=== PATIENT | female | born 1990 | race Two or more races ===

== ENCOUNTER 2016-12-23 00:50 | Emergency (ER) | payer SELFPAY ==
[~2016-12-23] VITALS: Ht 165.1 cm; Wt 59.0 kg
[2016-12-23] MEDS ORDERED: KETOROLAC TROMETHAMINE INJ 30 MG/ML VIAL ONE (01:03)
--- NOTE | 2016-12-23 01:10 | NUR ---
26 YO FEMALE BB FAMILY. PT IS ALERT X 3, RUQ ABD PAIN RADIATES TO RT UPPER BACK X1HR, NO N/V/D. PT AMBULATED TO ER BED, SKIN WARM AND DRY, RR EVEN AND UNLABORED. PT GOWNED, PLACED ON [employer]. AWAITING ORDERS FROM PROVIDER
[2016-12-23] MEDS ORDERED: ONDANSETRON HCL/PF 4 MG/2 ML VIAL ONE (01:19)
--- NOTE | 2016-12-23 01:20 | NUR ---
20G RIGHT AC IV STARTED, BLOOD SAMPLE OBTAINED AND SENT TO LAB. MEDICATED PT ORDERED
[2016-12-23] MEDS ORDERED: IV NS 0.9% 250 ML IV ONE (01:21)
[2016-12-23] MEDS ORDERED: IOHEXOL-300 100 ML VIAL IV ONE (01:21)
[2016-12-23 01:26] LABS: CALCIUM, SERUM 8.8 mg/dL (8.5-10.1); CREATININE 0.7 mg/dL (0.6-1.3); POTASSIUM 3.2 mmol/L (3.5-5.1)
--- NOTE | 2016-12-23 01:26 | NUR ---
PT HAD AN EPISODE OF EMISIS. NOTIFIED. ADMIN 4 MG ZOFRAN IVP
[2016-12-23] MEDS ORDERED: KETOROLAC TROMETHAMINE INJ 30 MG/ML VIAL IV ONE (01:30)
[2016-12-23] MEDS ORDERED: ONDANSETRON HCL/PF - ER 4 MG/2 ML VIAL IV ONE (01:30)
[2016-12-23 01:33] LABS: ALBUMIN 3.8 g/dL (3.4-5.0); BILIRUBIN,DIRECT 0.1 mg/dL (0.0-0.2); BILIRUBIN,TOTAL 0.4 mg/dL (0.2-1.0); HEMATOCRIT 28 % (33-45); MEAN CORPUSCULAR HEMOGLOBIN 19 PG (26.0-33.0); MEAN CORPUSCULAR HGB CONC 29 g/dl (31.0-36.0); MEAN CORPUSCULAR VOLUME 64 fL (82-100); RDW COEFFICIENT OF VARIATION 21.1 (11.5-15.0); RED BLOOD CELL COUNT(AUTO) 4.31 MIL/uL (4.0-5.2); TOTAL PROTEIN, SERUM 7.7 g/dL (6.4-8.2); WHITE BLOOD COUNT (AUTO) 9.1 K/uL (4.3-11.0)
[2016-12-23 01:34] LABS: EOSINOPHILS % (AUTO) 1.2 % (0.0-6.0); LYMPHOCYTES % (AUTO) 50.9 % (20.0-44.0); MONOCYTES % (AUTO) 10.6 % (2.0-12.0); NEUTROPHILS % (AUTO) 36.3 % (43.0-81.0); PLATELET COUNT (AUTO) 236 /CMM (150-450)
[2016-12-23] MEDS ORDERED: HYDROMORPHONE 1 MG/1 ML DISP.SYRIN ONE ×2 (01:57→04:32)
[2016-12-23] MEDS ORDERED: HYDROMORPHONE 1 MG/1 ML DISP.SYRIN IV ONE ×2 (02:00→05:00)
[2016-12-23 03:08] LABS: LYMPHOCYTES % (MANUAL) 54 % (16-48); MONOCYTES % (MANUAL) 5 % (0-11.0); NEUTROPHILS % (MANUAL) 41 (42-76)
--- NOTE | 2016-12-23 03:16 | NUR ---
radiology team at bed side for US
[2016-12-23 04:18] VITALS: BP 117/69
--- NOTE | 2016-12-23 04:18 | NUR ---
Patient discharged to home in stable condition. Written and verbal after care instructions given. Patient verbalizes understanding of instruction.IV removed. Catheter intact and site benign. Pressure and 4x4 applied to site. No bleeding noted. pt ambulatory with a steady gait VITAL SIGNS WITHIN NORMAL LIMITS.
[2016-12-23] MEDS ORDERED: POTASSIUM CHLORIDE 20 MEQ TAB.PRT.SR PO ONE ×2 (04:23→04:30)
== END 2016-12-23 04:41 | disposition home or self-care (01) ==
LOC: ER 00:50
DX: N83.201 Unspecified ovarian cyst, right side (principal); E87.6 Hypokalemia; D64.9 Anemia, unspecified
CPT/HCPCS: 36415; 74160; 76705; 76856; 80048; 80076; 83690; 84703; 85025; 96374; 96375; 96376; 99285; A4606; J1170 ×2; J1885; J2405; J7050; Q9967; Z7610